=== PATIENT | male | born 1960 | race Caucasian/White ===

== ENCOUNTER 2017-03-29 00:29 | Day surgery (SDC) | payer OTHER ==
[~2017-03-29] VITALS: Ht 170.2 cm; Wt 81.7 kg
[~2017-03-29 00:29] MED LIST: MUPI15CR TOPICAL
[2017-03-29] MEDS ORDERED: fentaNYL-PF 50 mCg/mL 2 mL Inj IVPUSH PRN (06:00)
[2017-03-29] MEDS ORDERED: 0.9% Sodium Chloride 1,000 ML IV SCH (06:00)
[2017-03-29] MEDS ORDERED: Sodium Chloride LOK Flush 10 mL Syringe IV PRN (06:00)
[2017-03-29 14:36] VITALS: BP 139/90; PULSE 64; RESP 16; O2SAT 96
[2017-03-29 16:02] VITALS: BP 112/67; PULSE 67; RESP 14; O2SAT 94
[2017-03-29 16:12] VITALS: BP 106/65; PULSE 64; RESP 12; O2SAT 95
[2017-03-29 16:22] VITALS: BP 116/78; PULSE 62; RESP 16; O2SAT 96
--- NOTE | 2017-03-29 16:28 | ENDO ---
[address] [address] ENDOSCOPY PROCEDURE PATIENT: YAZAN KELLY : 1960 MR#: [id number] ADMIT: 03/29/2017 JOB ID: [id number] DATE: 03/29/2017 PRIMARY PROVIDER: Christina Rubin PROCEDURE: Colonoscopy. INDICATIONS: A 56-year-old male who reports for colon cancer screening. EQUIPMENT: PCF H 180 AL. SEDATION: 1. 4 mg Versed. 2. 75 mcg fentanyl. COMPLICATIONS: None identified. BOWEL PREPARATION: Fair. PROCEDURAL INFORMATION: After the risks and benefits were explained, written and verbal informed consent was obtained. The patient was brought into the endoscopy suite and placed in the left lateral decubitus position. Sedation was achieved as above. A digital rectal examination accomplished. Mild internal hemorrhoids noted. The scope was introduced into the rectum and advanced under direct visualization to the level of the cecum, as identified by the appendiceal orifice and ileocecal valve. The scope was slowly withdrawn to carefully examine the mucosa for any defects or lesions. Retroflexed views were avoided in the rectum. Multiple direct views were made through the dentate line for exclusion of pathology. The colon was decompressed. The scope removed from the patient who tolerated the procedure well. FINDINGS: The patient had some diverticulosis in the left colon. Lengthy redundant colon. No significant polyps, mass lesions or inflammatory features identified. ENDOSCOPIC DIAGNOSES: 1. Diverticulosis. 2. Hemorrhoids. RECOMMENDATIONS: Repeat colonoscopy 10 years' time, sooner should symptoms warrant an earlier examination.
== END 2017-03-29 23:59 | disposition home or self-care (01) ==
LOC: END 00:29
PROVIDERS: ATTEND Internal Medicine Gastroenterology
DX: Z12.11 Encounter for screening for malignant neoplasm of colon (principal); K57.30 Diverticulosis of large intestine without perforation or abscess without bleeding; K64.9 Unspecified hemorrhoids; R03.0 Elevated blood-pressure reading, without diagnosis of hypertension; F10.20 Alcohol dependence, uncomplicated
CPT/HCPCS: G0121; G0500; J2250; J3010; J7030